=== PATIENT | male | born 1965 | race African-American/Black ===

== ENCOUNTER 2017-02-27 11:55 | Emergency (ER) | payer OTHER ==
[~2017-02-27] VITALS: Ht 172.7 cm; Wt 121.8 kg
[~2017-02-27 11:55] MED LIST: ADVAIR 500-501 EACH IH; ADVAIR 500/501 DISK IH; ALBUTEROL SULF8.5 GM IH; ALBUTEROL2.5 MG/3 M IH; ALBUTEROL2.5 MG/3 M PO; AVAPRO300 MG PO; CATAPRES0.1 MG PO; CATAPRES0.2 MG PO; CLONIDINE HCL0.2 MG PO; CLOPIDOGREL75 MG PO; EXFORGE HCT 101 EAC2 PO; FLEXERIL5 MG PO; HYDROCHLOROTHIA25 MG PO; IRBESARTAN300 MG PO; NORCO 5/3251 TABLET PO; NORVASC5 MG PO; PREDNISONE20 M1 PO; PREDNISONE20 MG PO; PREDNISONE50 MG PO; PROAIR HFA8.5 GM IH; PROVENTIL HFA6.7 GM IH; PROVENTIL,2.5 MG/3 M IH; SYMBICORT60 INHALAT IH; TEKTURNA150 MG PO; VENTOLIN HFA18 GM IH
[2017-02-27 13:18] LABS: EOSINOPHIL (%) 8.7 % (0-5); EOSINOPHIL COUNT 0.4 K/uL (0-0.3); HEMATOCRIT 45.4 % (38.0-50.0); IMMATURE GRANULOCYTE (%) 0.2 % (0.0-0.7); INSTRUMENT ABS NEUTROPHIL CT 2.4 K/uL; LYMPHOCYTE COUNT 1.5 K/uL (1.0-2.8); MCH 26.3 PG (29.0-34.0); MCHC 31.7 G/DL (30.0-36.0); MCV 82.8 FL (86-99); MEAN PLAT.VOLUME 9.5 uM^3 (9.0-12.4); MONOCYTE (%) 7.2 % (3-12); MONOCYTE COUNT 0.3 K/uL (0-0.8); NEUTROPHIL (%) 52.2 % (45-76); NEUTROPHIL COUNT 2.4 K/uL (1.8-6.4); PLATELET COUNT 221 K/uL (156-360); RBC DIS.WIDTH-CV 13.7 % (11.8-14.6); RBC DIS.WIDTH-SD 41.4 % (39-53); RED BLOOD COUNT 5.48 M/uL (4.00-5.50); WHITE BLOOD COUNT 4.6 K/uL (4.1-10.2)
[2017-02-27 13:28] LABS: CHLORIDE 104 mEq/L (99-109); POTASSIUM 4.4 mEq/L (3.7-5.4); SODIUM 138 mEq/L (136-147)
[2017-02-27 13:30] LABS: GLUCOSE 90 mg/dL (70-99)
[2017-02-27 13:31] LABS: ANION GAP 7 MEQ/L (2-14)
[2017-02-27 13:32] LABS: TOTAL BILIRUBIN 0.7 mg/dL (0.0-1.0)
[2017-02-27 13:33] LABS: ALKALINE PHOSPHATASE 63 IU/L (3-129)
[2017-02-27 13:34] LABS: GFR ESTIMATE (CALCULATED) > 59 mL/min/
[2017-02-27 13:35] LABS: UREA NITROGEN (BUN) 13 mg/dL (9-23)
[2017-02-27 13:37] LABS: CREATINE KINASE 668 IU/L (1-294); TOTAL CK 668 IU/L (1-294)
[2017-02-27 13:39] LABS: TROP-I INTERPRETATION NEGATIVE; TROPONIN-I < 0.01 ng/mL (0.0-0.30)
[2017-02-27 13:43] LABS: CK-MB 7.9 ng/mL (0.0-4.9)
[2017-02-27 14:15] LABS: D-DIMER ELISA 0.26 mg/L FEU (< 0.57)
[2017-02-27 15:17] VITALS: BP 146/105
== END 2017-02-27 15:25 | disposition home or self-care (01) ==
LOC: EME 11:55
PROVIDERS: Emergency Medicine
DX: J45.901 Unspecified asthma with (acute) exacerbation (principal); I10 Essential (primary) hypertension
CPT/HCPCS: 71010; 80053; 82550; 82553; 83605; 83880; 84484; 85025; 85379; 94640; 99281; 99285; J1940

== ENCOUNTER 2017-10-01 09:26 | Emergency (ER) | payer OTHER ==
[~2017-10-01] VITALS: Ht 177.8 cm; Wt 108.0 kg
[2017-10-01 10:23] LABS: HEMATOCRIT 46.1 % (38.0-50.0); MCH 26.9 PG (29.0-34.0); MCHC 32.3 G/DL (30.0-36.0); MCV 83.2 FL (86-99); PLATELET COUNT 221 K/uL (156-360); RBC DIS.WIDTH-CV 13.8 % (11.8-14.6); RBC DIS.WIDTH-SD 41.8 % (39-53); RED BLOOD COUNT 5.54 M/uL (4.00-5.50); WHITE BLOOD COUNT 3.9 K/uL (4.1-10.2)
[2017-10-01 10:34] LABS: CHLORIDE 106 mEq/L (99-109); POTASSIUM 3.8 mEq/L (3.7-5.4); SODIUM 142 mEq/L (136-147)
[2017-10-01 10:36] LABS: GLUCOSE 91 mg/dL (70-99)
[2017-10-01 10:38] LABS: ANION GAP 7 MEQ/L (2-14)
[2017-10-01 10:40] LABS: GFR ESTIMATE (CALCULATED) > 59 mL/min/
[2017-10-01 10:41] LABS: UREA NITROGEN (BUN) 9 mg/dL (9-23)
[2017-10-01 10:44] LABS: TROP-I INTERPRETATION NEGATIVE; TROPONIN-I 0.02 ng/mL (0.0-0.30)
[2017-10-01 12:58] LABS: TROP-I INTERPRETATION NEGATIVE; TROPONIN-I 0.01 ng/mL (0.0-0.30)
[2017-10-01] MEDS ORDERED: VENTOLIN HFA18 GM IH (12:58)
[2017-10-01] MEDS ORDERED: PREDNISONE20 MG PO (12:58)
[2017-10-01 13:13] VITALS: BP 153/97
== END 2017-10-01 13:38 | disposition home or self-care (01) ==
LOC: EME 09:26
PROVIDERS: Nurse Practitioner Family
DX: J45.909 Unspecified asthma, uncomplicated (principal); R06.02 Shortness of breath; R05 Cough; I10 Essential (primary) hypertension; H91.92 Unspecified hearing loss, left ear; Z91.040 Latex allergy status; Z88.7 Allergy status to serum and vaccine
CPT/HCPCS: 71020; 80048; 84484; 85027; 93005; 94640; 99281; 99285; J7512; J7644

== ENCOUNTER 2017-10-19 07:03 | Emergency (ER) | payer OTHER ==
[~2017-10-19] VITALS: Ht 172.7 cm; Wt 106.5 kg
[2017-10-19 07:30] LABS: HEMATOCRIT 49.3 % (38.0-50.0); MCH 26.9 PG (29.0-34.0); MCHC 31.4 G/DL (30.0-36.0); MCV 85.4 FL (86-99); MEAN PLAT.VOLUME 9.7 uM^3 (9.0-12.4); PLATELET COUNT 226 K/uL (156-360); RBC DIS.WIDTH-CV 13.8 % (11.8-14.6); RBC DIS.WIDTH-SD 42.6 % (39-53); RED BLOOD COUNT 5.77 M/uL (4.00-5.50); WHITE BLOOD COUNT 5.4 K/uL (4.1-10.2)
[2017-10-19 08:01] LABS: ANION GAP 6 MEQ/L (2-14); CHLORIDE 104 MEQ/L (99-109); GFR ESTIMATE (CALCULATED) > 59 mL/min/; GLUCOSE 90 mg/dL (70-99); POTASSIUM 4.3 MEQ/L (3.7-5.4); SAMPLE HEMOLYSIS CHECK 0; SAMPLE ICTERIC CHECK 0; SAMPLE LIPEMIA CHECK 0; SODIUM 142 MEQ/L (136-147); UREA NITROGEN (BUN) 13 mg/dL (9-23)
[2017-10-19] MEDS ORDERED: ADVAIR 250/501 DISK IH (09:56)
[2017-10-19] MEDS ORDERED: PREDNISONE20 MG PO (09:56)
[2017-10-19] MEDS ORDERED: DUONEB 2.5-0.5 M3 ML AEROSOL (09:56)
[2017-10-19 10:07] VITALS: BP 116/78
== END 2017-10-19 10:09 | disposition home or self-care (01) ==
LOC: EME 07:03
DX: J45.901 Unspecified asthma with (acute) exacerbation (principal); S20.212A Contusion of left front wall of thorax, initial encounter; W19.XXXA Unspecified fall, initial encounter; I10 Essential (primary) hypertension; H91.90 Unspecified hearing loss, unspecified ear; Z97.4 Presence of external hearing-aid; Z91.040 Latex allergy status; Z88.6 Allergy status to analgesic agent; Z88.7 Allergy status to serum and vaccine
CPT/HCPCS: 71020; 80048; 85027; 94640; 99281; 99284; J7512

== ENCOUNTER 2018-02-14 08:46 | Emergency (ER) | payer OTHER ==
[~2018-02-14] VITALS: Ht 172.7 cm; Wt 110.2 kg
[~2018-02-14 08:46] MED LIST changes: +ADVAIR 250/501 DISK IH; +DUONEB 2.5-0.5 M3 ML AEROSOL
[2018-02-14 09:47] LABS: HEMATOCRIT 46.1 % (38.0-50.0); HEMOGLOBIN 14.9 G/DL (12.5-16.6); MCH 26.8 PG (29.0-34.0); MCHC 32.3 G/DL (30.0-36.0); MCV 82.9 FL (86-99); PLATELET COUNT 212 K/uL (156-360); RBC DIS.WIDTH-CV 13.7 % (11.8-14.6); RBC DIS.WIDTH-SD 41.2 % (39-53); RED BLOOD COUNT 5.56 M/uL (4.00-5.50); WHITE BLOOD COUNT 5.5 K/uL (4.1-10.2)
[2018-02-14 09:58] LABS: CHLORIDE 105 mEq/L (99-109); POTASSIUM 4.1 mEq/L (3.7-5.4); SODIUM 142 mEq/L (136-147)
[2018-02-14 09:59] LABS: GLUCOSE 84 mg/dL (70-99)
[2018-02-14 10:03] LABS: CREATININE 0.8 mg/dL (0.6-1.3); GFR ESTIMATE (CALCULATED) > 59 mL/min/ (58.99-99999)
[2018-02-14 10:04] LABS: UREA NITROGEN (BUN) 15 mg/dL (9-23)
[2018-02-14] MEDS ORDERED: PREDNISONE20 MG PO (13:18)
[2018-02-14] MEDS ORDERED: VENTOLIN HFA18 GM IH (13:18)
[2018-02-14 13:40] VITALS: BP 171/116
== END 2018-02-14 13:40 | disposition home or self-care (01) ==
LOC: EME 08:46
PROVIDERS: Physician Assistant Medical
DX: J45.901 Unspecified asthma with (acute) exacerbation (principal); I10 Essential (primary) hypertension; Z79.51 Long term (current) use of inhaled steroids; Z97.4 Presence of external hearing-aid; Z91.040 Latex allergy status; Z88.6 Allergy status to analgesic agent; Z88.7 Allergy status to serum and vaccine
CPT/HCPCS: 71046; 71260; 80048; 85027; 94640; 99281; 99285; J2930; J3475; J7030

== ENCOUNTER 2018-06-25 07:56 | Emergency (ER) | payer OTHER ==
[~2018-06-25] VITALS: Ht 172.7 cm; Wt 107.7 kg
[2018-06-25 09:46] LABS: HEMATOCRIT 43.9 % (38.0-50.0); HEMOGLOBIN 14.5 G/DL (12.5-16.6); MCH 27.5 PG (29.0-34.0); MCV 83.1 FL (86-99); PLATELET COUNT 195 K/uL (156-360); RBC DIS.WIDTH-CV 13.2 % (11.8-14.6); RBC DIS.WIDTH-SD 39.8 % (39-53); RED BLOOD COUNT 5.28 M/uL (4.00-5.50); WHITE BLOOD COUNT 3.5 K/uL (4.1-10.2)
[2018-06-25 10:04] LABS: TROP-I INTERPRETATION NEGATIVE; TROPONIN-I < 0.01 ng/mL (0.0-0.30)
[2018-06-25 10:16] LABS: ALBUMIN 3.9 G/DL (3.2-4.8); ALKALINE PHOSPHATASE 57 IU/L (3-129); ALT (GPT) 25 IU/L (3-49); AST (GOT) 16 IU/L (2-34); CHLORIDE 102 MEQ/L (99-109); GFR ESTIMATE (CALCULATED) > 59 mL/min/ (58.99-99999); GLUCOSE 98 mg/dL (70-99); POTASSIUM 4.1 MEQ/L (3.7-5.4); SODIUM 139 MEQ/L (136-147); TOTAL BILIRUBIN 0.7 MG/DL (0.0-1.0); TOTAL PROTEIN 6.4 G/DL (6.4-8.3); UREA NITROGEN (BUN) 16 mg/dL (9-23)
[2018-06-25 11:30] VITALS: BP 158/110
== END 2018-06-25 11:31 | disposition home or self-care (01) ==
LOC: EME 07:56
PROVIDERS: Nurse Practitioner Family
DX: R51 Headache (principal); I10 Essential (primary) hypertension; J45.909 Unspecified asthma, uncomplicated; G43.909 Migraine, unspecified, not intractable, without status migrainosus; Z79.51 Long term (current) use of inhaled steroids; Z86.73 Personal history of transient ischemic attack (TIA), and cerebral infarction without residual deficits; Z88.6 Allergy status to analgesic agent; Z88.7 Allergy status to serum and vaccine; Z91.040 Latex allergy status
CPT/HCPCS: 70450; 80053; 84484; 85027; 99281; 99284